=== PATIENT | male | born 1975 | race Caucasian/White ===

== ENCOUNTER 2016-11-26 00:10 | Emergency (ER) | payer OTHER, SELFPAY ==
[~2016-11-26] VITALS: Ht 182.9 cm; Wt 101.0 kg
[2016-11-26 02:22] VITALS: BP 127/88
== END 2016-11-26 02:19 | disposition home or self-care (01) ==
LOC: EMS 00:12
DX: S40.861A Insect bite (nonvenomous) of right upper arm, initial encounter (principal); W57.XXXA Bitten or stung by nonvenomous insect and other nonvenomous arthropods, initial encounter; Y93.89 Activity, other specified; Y92.89 Other specified places as the place of occurrence of the external cause; Y99.8 Other external cause status
CPT/HCPCS: 99281